=== PATIENT | female | born 1985 | race Caucasian/White ===

== ENCOUNTER 2017-04-24 13:37 | Emergency (ER) | payer OTHER ==
[~2017-04-24] VITALS: Ht 157.5 cm; Wt 81.0 kg
[~2017-04-24 13:37] MED LIST: CIPRO500 MG PO; DIFLUCAN150 MG PO; EXCEDRIN EXTRA1 EACH PO; FLONASE16 G1 BOTH NARES; IBUPROFEN800 MG PO; MOTRIN800 MG PO; PEPCID20 MG PO; PERCOCET 5/31 TABLET PO; PRENATAL TABLE1 EAC3 PO; PRILOSEC20 MG PO; TYLENOL EXTRA500 MG PO; TYLENOL WITH C1 EACH PO; VALIUM5 MG PO; Vicodin,Norco 5/325 PO; ZYRTEC10 M3 PO; oxyCODONE PO
[2017-04-24 17:12] LABS: HEMATOCRIT 34.4 % (36.0-46.0); HEMOGLOBIN 11.4 G/DL (11.9-15.5); MCH 28.4 PG (29.0-34.0); MCHC 33.1 G/DL (30.0-36.0); MCV 85.8 FL (83-99); PLATELET COUNT 228 K/uL (156-360); RBC DIS.WIDTH-CV 13.3 % (11.8-14.6); RBC DIS.WIDTH-SD 41.5 % (39-53); RED BLOOD COUNT 4.01 M/uL (3.80-5.20)
[2017-04-24 17:19] LABS: CHLORIDE 107 mEq/L (99-109); POTASSIUM 3.9 mEq/L (3.7-5.4); SODIUM 139 mEq/L (136-147)
[2017-04-24 17:21] LABS: GLUCOSE 91 mg/dL (70-99)
[2017-04-24 17:25] LABS: CREATININE 0.7 mg/dL (0.6-1.3); GFR ESTIMATE (CALCULATED) > 59 mL/min/
[2017-04-24 17:26] LABS: UREA NITROGEN (BUN) 10 mg/dL (9-23)
[2017-04-24 18:05] LABS: APPEARANCE CLOUDY ((CLEAR)); BILIRUBIN NEGATIVE; BLOOD NEGATIVE; COLOR YELLOW ((YELLOW)); GLUCOSE (STRIP) NEGATIVE; KETONES NEGATIVE; LEUKOCYTES TRACE; NITRITE NEGATIVE; PROTEIN (STRIP) NEGATIVE; SPECIFIC GRAVITY 1.019 (1.000-1.030); UROBILINOGEN 0.2 MG/DL (0.2-1.0)
[2017-04-24 18:23] LABS: BACTERIA RARE /HPF; EPITHELIAL CELLS 4+ /HPF; MUCUS TRACE /LPF; RED BLOOD CELLS 0-5 /HPF (0-5); UCUL ADDED? NO; WHITE BLOOD CELLS 0-5 /HPF (0-5)
[2017-04-24] MEDS ORDERED: REGLAN10 MG PO (18:33)
[2017-04-24 18:42] VITALS: BP 128/79
== END 2017-04-24 18:43 | disposition home or self-care (01) ==
LOC: EME 13:37
PROVIDERS: Nurse Practitioner Family
DX: O99.89 Other specified diseases and conditions complicating pregnancy, childbirth and the puerperium (principal); R51 Headache; Z3A.22 22 weeks gestation of pregnancy; O99.612 Diseases of the digestive system complicating pregnancy, second trimester; K21.9 Gastro-esophageal reflux disease without esophagitis; Z87.891 Personal history of nicotine dependence; Z90.49 Acquired absence of other specified parts of digestive tract
CPT/HCPCS: 80048; 81003; 85027; 99281; 99285; J2765; J7030

== ENCOUNTER 2017-07-12 18:38 | Outpatient (CLI) | payer OTHER ==
[~2017-07-12] VITALS: Ht 157.5 cm; Wt 88.5 kg
[~2017-07-12 18:38] MED LIST changes: +REGLAN10 MG PO
[2017-07-12 19:22] VITALS: BP 131/77
[2017-07-12] MEDS ORDERED: ZYRTEC5 MG PO (19:30)
[2017-07-12] MEDS ORDERED: TYLENOL EXTRA500 MG PO (19:31)
[2017-07-12] MEDS ORDERED: PRENATAL TABLE1 EAC3 PO (19:31)
[2017-07-12] MEDS ORDERED: LO-DOSE ASPIRIN81 M1 PO (19:32)
[2017-07-12 20:20] LABS: BASOPHIL (%) 0.2 % (0-1); EOSINOPHIL (%) 0.5 % (0-5); EOSINOPHIL COUNT 0.1 K/uL (0-0.3); HEMATOCRIT 29.8 % (36.0-46.0); HEMOGLOBIN 9.7 G/DL (11.9-15.5); IMMATURE GRANULOCYTE (%) 0.7 % (0.0-0.7); LYMPHOCYTE (%) 13.2 % (15-42); MCH 27.4 PG (29.0-34.0); MCHC 32.6 G/DL (30.0-36.0); MCV 84.2 FL (83-99); MONOCYTE (%) 5.5 % (3-12); MONOCYTE COUNT 0.8 K/uL (0-0.8); NEUTROPHIL (%) 79.9 % (45-76); PLATELET COUNT 222 K/uL (156-360); RBC DIS.WIDTH-SD 39.2 % (39-53); RED BLOOD COUNT 3.54 M/uL (3.80-5.20)
[2017-07-12 20:49] LABS: ALBUMIN 3.3 G/DL (3.2-4.8); ALKALINE PHOSPHATASE 97 IU/L (3-129); ALT (GPT) 11 IU/L (3-49); AST (GOT) 13 IU/L (2-34); CHLORIDE 104 MEQ/L (99-109); CREATININE 0.6 MG/DL (0.6-1.3); GFR ESTIMATE (CALCULATED) > 59 mL/min/; GLUCOSE 88 mg/dL (70-99); LACTATE DEHYDROGENASE 143 IU/L (20-246); POTASSIUM 4.1 MEQ/L (3.7-5.4); SODIUM 137 MEQ/L (136-147); TOTAL BILIRUBIN 0.3 MG/DL (0.0-1.0); TOTAL PROTEIN 5.4 G/DL (6.4-8.3); UREA NITROGEN (BUN) 4 mg/dL (9-23); URIC ACID 3.6 mg/dL (3.1-9.2)
[2017-07-12 21:19] VITALS: BP 148/78
[2017-07-12 21:37] VITALS: BP 142/81
[2017-07-12 23:35] VITALS: BP 130/73
[2017-07-12] MEDS ORDERED: PROCARDIA10 MG PO (23:58)
[2017-07-13 00:42] LABS: APPEARANCE CLEAR ((CLEAR)); BILIRUBIN NEGATIVE; BLOOD SMALL; COLOR YELLOW ((YELLOW)); GLUCOSE (STRIP) NEGATIVE; KETONES NEGATIVE; LEUKOCYTES NEGATIVE; NITRITE NEGATIVE; PROTEIN (STRIP) NEGATIVE; UROBILINOGEN 0.2 MG/DL (0.2-1.0)
[2017-07-13 00:45] LABS: BACTERIA NONE SEEN /HPF; EPITHELIAL CELLS RARE /HPF; MUCUS TRACE /LPF; RED BLOOD CELLS 0-5 /HPF (0-5); WHITE BLOOD CELLS 0-5 /HPF (0-5)
[2017-07-13 03:26] LABS: CANDIDA DNA PROBE NEGATIVE; GARDNERELLA DNA PROBE POSITIVE; TRICHOMONAS DNA PROBE NEGATIVE
== END 2017-07-13 00:55 | disposition home or self-care (01) ==
LOC: LDRP-OP → 2WEST 18:39 → LDRP-OP 09-25 13:04
PROVIDERS: Advanced Practice Midwife
DX: O13.3 Gestational [pregnancy-induced] hypertension without significant proteinuria, third trimester (principal); O60.03 Preterm labor without delivery, third trimester; Z3A.33 33 weeks gestation of pregnancy; O44.23 Partial placenta previa NOS or without hemorrhage, third trimester; Z87.891 Personal history of nicotine dependence
CPT/HCPCS: 59025; 80053; 81003; 82570; 83615; 84156; 84550; 85025; 87086; 87480; 87510; 87660; G0378

== ENCOUNTER 2017-08-03 04:37 | Inpatient (IN) | payer OTHER ==
[~2017-08-03] VITALS: Ht 157.5 cm; Wt 89.5 kg
[2017-08-03] VITALS (7 sets, daily range): BP systolic 108–139; BP diastolic 61–89
[~2017-08-03 04:37] MED LIST changes: +FLAGYL500 MG PO; +LO-DOSE ASPIRIN81 M1 PO; +PROCARDIA10 MG PO; +ZYRTEC5 MG PO
[2017-08-03] MEDS ORDERED: IRON325 M1 PO (05:02)
[2017-08-03 06:00] LABS: ALKALINE PHOSPHATASE 117 IU/L (3-129); ALT (GPT) 16 IU/L (3-49); AST (GOT) 20 IU/L (2-34); BASOPHIL (%) 0.1 % (0-1); CHLORIDE 105 MEQ/L (99-109); CREATININE 0.7 MG/DL (0.6-1.3); EOSINOPHIL (%) 0.4 % (0-5); GFR ESTIMATE (CALCULATED) > 59 mL/min/; GLUCOSE 93 mg/dL (70-99); HEMATOCRIT 31.8 % (36.0-46.0); HEMOGLOBIN 10.4 G/DL (11.9-15.5); IMMATURE GRANULOCYTE (%) 0.6 % (0.0-0.7); LYMPHOCYTE (%) 18.7 % (15-42); MCHC 32.7 G/DL (30.0-36.0); MCV 85.7 FL (83-99); MONOCYTE COUNT 0.5 K/uL (0-0.8); NEUTROPHIL (%) 75.2 % (45-76); NEUTROPHIL COUNT 7.9 K/uL (1.8-6.4); PLATELET COUNT 216 K/uL (156-360); POTASSIUM 3.8 MEQ/L (3.7-5.4); RBC DIS.WIDTH-CV 15.9 % (11.8-14.6); RBC DIS.WIDTH-SD 49.1 % (39-53); RED BLOOD COUNT 3.71 M/uL (3.80-5.20); SODIUM 137 MEQ/L (136-147); TOTAL BILIRUBIN 0.4 MG/DL (0.0-1.0); TOTAL PROTEIN 5.3 G/DL (6.4-8.3); UREA NITROGEN (BUN) 8 mg/dL (9-23); WHITE BLOOD COUNT 10.5 K/uL (4.1-10.2)
[2017-08-04] VITALS (7 sets, daily range): BP systolic 102–121; BP diastolic 56–70
[2017-08-04 06:52] LABS: BASOPHIL (%) 0.2 % (0-1); EOSINOPHIL (%) 1.6 % (0-5); EOSINOPHIL COUNT 0.2 K/uL (0-0.3); HEMATOCRIT 29.5 % (36.0-46.0); HEMOGLOBIN 9.3 G/DL (11.9-15.5); IMMATURE GRANULOCYTE (%) 0.5 % (0.0-0.7); LYMPHOCYTE (%) 16.7 % (15-42); LYMPHOCYTE COUNT 1.8 K/uL (1.0-2.8); MCH 27.2 PG (29.0-34.0); MCHC 31.5 G/DL (30.0-36.0); MCV 86.3 FL (83-99); MONOCYTE (%) 7.1 % (3-12); MONOCYTE COUNT 0.8 K/uL (0-0.8); NEUTROPHIL (%) 73.9 % (45-76); NEUTROPHIL COUNT 7.8 K/uL (1.8-6.4); PLATELET COUNT 202 K/uL (156-360); RBC DIS.WIDTH-CV 15.7 % (11.8-14.6); RBC DIS.WIDTH-SD 49.1 % (39-53); RED BLOOD COUNT 3.42 M/uL (3.80-5.20); WHITE BLOOD COUNT 10.6 K/uL (4.1-10.2)
[2017-08-05 07:10] VITALS: BP 127/80
[2017-08-05] MEDS ORDERED: IBUPROFEN800 MG PO (09:42)
[2017-08-05] MEDS ORDERED: ENDOCET 5-3251 EACH PO (09:42)
[2017-08-05 16:28] VITALS: BP 132/77
[2017-08-05 19:33] VITALS: BP 130/79
[2017-08-05 20:11] VITALS: BP 133/75
[2017-08-05 23:27] VITALS: BP 136/79
[2017-08-06 03:11] VITALS: BP 137/77
[2017-08-06 07:07] VITALS: BP 130/79
[2017-08-06 11:12] VITALS: BP 142/84
== END 2017-08-06 12:30 | disposition home or self-care (01) | DRG 765 ==
LOC: 2WEST 04:37 → 2SOUTH 13:30 → 2WEST 08-06 12:30
PROVIDERS: Obstetrics & Gynecology
DX: O44.03 Complete placenta previa NOS or without hemorrhage, third trimester (principal); D62 Acute posthemorrhagic anemia; E66.9 Obesity, unspecified; O99.214 Obesity complicating childbirth; Z3A.37 37 weeks gestation of pregnancy; O99.824 Streptococcus B carrier state complicating childbirth; D50.9 Iron deficiency anemia, unspecified; O44.43 Low lying placenta NOS or without hemorrhage, third trimester; Z37.0 Single live birth; O98.52 Other viral diseases complicating childbirth; R87.820 Cervical low risk human papillomavirus (HPV) DNA test positive; Z87.891 Personal history of nicotine dependence; Z30.2 Encounter for sterilization; O99.02 Anemia complicating childbirth; Z68.30 Body mass index [BMI] 30.0-30.9, adult; M47.9 Spondylosis, unspecified
CPT/HCPCS: 80053; 85025; 85025 91; 86850; 86900; 86901; 86920; 88307; J0690; J1200; J2250; J2274; J2405; J2590; J3010; J7120